=== PATIENT | male | born 1995 | race Caucasian/White ===

== ENCOUNTER 2020-05-30 23:01 | Emergency (ER) | payer OTHER, SELFPAY ==
[2020-05-31 00:45] LABS: #Basophils 0.1 thou/uL (0.0-0.2); #Eosinphils 0.8 thou/uL (0.0-0.7); #Lymphocytes 2.1 thou/uL (1.20-3.40); #Monocytes 1.6 thou/uL (0.11-0.59); #Neutrophils 14.3 thou/uL (1.40-6.50); %Basophils 0.4 % (0.0-1.0); %Eosinophils 4.5 % (0.0-10.0); %Lymphocytes 10.9 % (21.0-51.0); %Monocytes 8.6 % (0.0-10.0); %Neutrophils 75.7 % (42.0-75.0); Hemoglobin 14.2 g/dL (14.0-18.0); Mean Corpuscular HGB CONC 33.7 g/dL (32.0-36.0); Mean Corpuscular Hemoglobin 29.7 pg (27.0-31.0); Mean Corpuscular Volume 88.1 fL (78.0-98.0); Mean Platelet Volume 8.3 fL (7.4-10.4); Platelet Count 237 thou/uL (130-400); RBC Distribution Width 11.4 % (11.5-14.5); Red Blood Cell (RBC) Count 4.78 mill/uL (4.70-6.10); White Blood Cell (WBC) Count 18.8 thou/uL (4.8-10.8)
[2020-05-31 01:05] LABS: ALT (SGPT) 23 U/L (8-55); AST (SGOT) 19 U/L (5-34); Albumin 3.8 g/dL (3.5-5.0); Alkaline Phosphatase 66 U/L (40-110); Anion Gap 13 mmol/L (10-20); BUN (Urea Nitrogen) 22 mg/dL (8.9-20.6); Bilirubin, Total 1.1 mg/dL (0.2-1.2); Calc. Creatinine Clearance 0 mL/min (70-130); Calcium 9.1 mg/dL (7.8-10.44); Carbon Dioxide 26 mmol/L (22-29); Chloride 103 mmol/L (98-107); Globulin 3.1 g/dL (2.4-3.5); Glucose 104 mg/dL (70-105); Potassium 4.2 mmol/L (3.5-5.1); Protein, Total 6.9 g/dL (6.0-8.3); Sodium 138 mmol/L (136-145)
[2020-05-31] MEDS ORDERED: Clindamycin/D5W 300 MG in Premix Bag 1 BAG IVPB SCH (01:30)
[2020-05-31] MEDS ORDERED: Boostrix 0.5 ML (Tdap) VIAL ONE (02:45)
[2020-05-31] MEDS ORDERED: Lidocaine 1% PF 5 ML VIAL ONE (03:02)
== END 2020-05-31 03:22 | disposition home or self-care (01) ==
LOC: ERS 23:01
DX: L03.116 Cellulitis of left lower limb (principal); L02.416 Cutaneous abscess of left lower limb; F17.220 Nicotine dependence, chewing tobacco, uncomplicated; Z79.899 Other long term (current) drug therapy
CPT/HCPCS: 10060; 36415; 80053; 83605; 85025; 87040; 87070; 87077; 87186; 87205; 90471; 90715; 96365; J3490

== ENCOUNTER 2020-09-02 03:00 | Emergency (ER) | payer SELFPAY | END 2020-09-02 03:49 | disposition home or self-care (01) | LOC: ERS 03:00 | DX: R06.02 Shortness of breath (principal); J45.909 Unspecified asthma, uncomplicated | CPT/HCPCS: 99284 ==

== ENCOUNTER 2023-02-28 12:34 | Emergency (ER) | payer OTHER, SELFPAY ==
[2023-02-28] MEDS ORDERED: Lidocaine 1% PF 5 ML VIAL ONE (13:50)
== END 2023-02-28 15:03 | disposition home or self-care (01) ==
LOC: ERS 12:34
DX: S01.511A Laceration without foreign body of lip, initial encounter (principal); F17.210 Nicotine dependence, cigarettes, uncomplicated; Y04.8XXA Assault by other bodily force, initial encounter
CPT/HCPCS: 12011